=== PATIENT | male | born 1940 | race Caucasian/White ===

== ENCOUNTER → 2018-12-26 | Outpatient (CLI) | payer MEDICARE, BC | END | disposition home or self-care (01) | LOC: HKI 14:53 | DX: M25.552 Pain in left hip (principal); M54.5 Low back pain; M54.16 Radiculopathy, lumbar region; Z79.82 Long term (current) use of aspirin; Z96.653 Presence of artificial knee joint, bilateral; Z96.641 Presence of right artificial hip joint | CPT/HCPCS: 73502 ==